=== PATIENT | male | born 2000 | race Caucasian/White ===

== ENCOUNTER → 2021-12-29 | Outpatient (CLI) | payer OTHER | LOC: M RAD 09:23 | PROVIDERS: ATTEND Physician Assistant | DX: R06.00 Dyspnea, unspecified (principal) ==

== ENCOUNTER 2022-01-04 10:05 | Emergency (ER) | payer OTHER ==
[~2022-01-04] VITALS: Ht 175.3 cm; Wt 86.4 kg
[2022-01-04] MEDS ORDERED: ONDA4TAB6 PO (10:54)
[2022-01-04] MEDS ORDERED: OSEL75CA PO (10:54)
[2022-01-04 11:01] VITALS: BP 122/68
== END 2022-01-04 11:05 | disposition home or self-care (01) ==
LOC: M ED 10:05
DX: J09.X9 Influenza due to identified novel influenza A virus with other manifestations (principal); J45.909 Unspecified asthma, uncomplicated